=== PATIENT | male | born 1995 | race Caucasian/White ===

== ENCOUNTER 2017-01-13 00:59 | Emergency (ER) | payer OTHER ==
[2017-01-13 02:44] LABS: HEMOGLOBIN 16.3 gm/dl (14.0-17.5); RED BLOOD COUNT 5.26 M/UL (4.20-5.50); WHITE BLOOD COUNT 7.6 K/UL (4.5-11.0)
[2017-01-13 02:58] LABS: BUN/CREATININE RATIO 14 (0-10)
== END 2017-01-13 05:10 | disposition home or self-care (01) ==
LOC: ER1 00:59
PROVIDERS: Emergency Medicine
DX: A08.4 Viral intestinal infection, unspecified (principal); E86.0 Dehydration
CPT/HCPCS: 36415; 80053; 83690; 85025; 96361; 96374; 96375; 99284; J1885; J2405

== ENCOUNTER 2020-12-05 12:05 | Emergency (ER) | payer BC ==
[~2020-12-05 12:05] MED LIST: BACTRIM DS TAB1 EACH PO; BENTYL 10MG CAP10 MG PO; KEFLEX CAP 500500 MG PO; LODINE CAP 300300 MG PO; PROTONIX40 MG PO; ZOFRAN4 MG PO
== END 2020-12-05 14:42 | disposition left against medical advice (07) ==
LOC: ER1 12:05
DX: M54.9 Dorsalgia, unspecified (principal); Z53.21 Procedure and treatment not carried out due to patient leaving prior to being seen by health care provider

== ENCOUNTER 2020-12-05 18:12 | Emergency (ER) | payer BC | END 2020-12-05 21:27 | disposition left against medical advice (07) | LOC: ER1 18:12 | DX: Z53.21 Procedure and treatment not carried out due to patient leaving prior to being seen by health care provider (principal) ==

== ENCOUNTER 2021-12-24 01:14 | Emergency (ER) | payer BC ==
[2021-12-24 02:05] LABS: HEMOGLOBIN 14.7 gm/dl (14.0-17.5); RED BLOOD COUNT 4.92 M/UL (4.20-5.50); WHITE BLOOD COUNT 8.6 K/UL (4.5-11.0)
[2021-12-24 02:45] LABS: BUN/CREATININE RATIO 15 (0-10)
== END 2021-12-24 05:08 | disposition home or self-care (01) ==
LOC: ER1 01:14
PROVIDERS: Family Medicine
DX: R07.9 Chest pain, unspecified (principal); F17.290 Nicotine dependence, other tobacco product, uncomplicated
CPT/HCPCS: 80053; 82550; 82553; 84484; 85025; 85379; 99284; Q9967